=== PATIENT | male | born 1940 | race Caucasian/White ===

== ENCOUNTER 2022-01-08 15:10 | Outpatient (CLI) | payer MEDICARE, SELFPAY ==
[2022-01-08 15:30] LABS: Hematocrit 36.7 % (37.0-46.0); Hemoglobin 12.1 g/dL (12.4-15.3); Mean Corpuscular Hemoglobin 30.4 pg (27.0-31.0); Mean Corpuscular Volume 92.2 fL (78.0-102.0); Mean Platelet Volume 9.4 fl (8.7-11.0); Platelet Count Result 241 K/mm3 (150-420); Red Blood Count 3.98 M/mm3 (4.70-6.10); White Blood Count 8.6 K/mm3 (4.8-10.8)
[2022-01-08 15:57] LABS: Alanine Aminotransferase 23 U/L (16-63); Albumin Level 3.9 g/dL (3.4-5.0); Alkaline Phosphatase 98 U/L (46-116); Anion Gap 9 mmol/L (8-16); Aspartate Amino Transferase 21 U/L (15-37); Bilirubin,Total 0.5 mg/dL (0.00-1.00); Blood Urea Nitrogen 18 mg/dL (7-18); Carbon Dioxide 27 mmol/L (21-32); Chloride 92 mmol/L (98-108); Estimated Glomerular Filt Rate 54; Glucose 112 mg/dL (70-99); Osmolality Calculated 268 mOsm/kg (285-295); Potassium 4.2 mmol/L (3.5-5.1); Sodium 128 mmol/L (136-145); Total Protein 7.5 g/dL (6.4-8.2)
[2022-01-08 16:05] LABS: SARS-CoV-2 RNA PCR Negative (Negative)
== END 2022-01-08 15:11 | disposition home or self-care (01) ==
LOC: CHSLAB 15:14
PROVIDERS: PCP Family Medicine; Visit Provider Family Medicine
DX: R03.0 Elevated blood-pressure reading, without diagnosis of hypertension (principal); R68.89 Other general symptoms and signs; Z20.822 Contact with and (suspected) exposure to COVID-19
CPT/HCPCS: 36415; 80053; 85027; C9803; U0003; U0005

== ENCOUNTER 2022-01-13 13:30 | Outpatient (CLI) | payer MEDICARE, SELFPAY ==
[2022-01-13 14:03] LABS: Anion Gap 5 mmol/L (8-16); Blood Urea Nitrogen 13 mg/dL (7-18); Calcium 9.1 mg/dL (8.5-10.1); Carbon Dioxide 31 mmol/L (21-32); Chloride 99 mmol/L (98-108); Estimated Glomerular Filt Rate > 60; Potassium 3.9 mmol/L (3.5-5.1); Sodium 135 mmol/L (136-145)
[2022-01-13 14:08] LABS: Glucose 105 mg/dL (70-99); Osmolality Calculated 280 mOsm/kg (285-295)
== END 2022-01-13 13:31 | disposition home or self-care (01) ==
LOC: CHSLAB 13:33
PROVIDERS: PCP Family Medicine; Visit Provider Nurse Practitioner Family
DX: E87.1 Hypo-osmolality and hyponatremia (principal)
CPT/HCPCS: 36415; 80048

== ENCOUNTER 2023-04-01 13:29 | Outpatient (CLI) | payer MEDICARE, SELFPAY ==
[2023-04-01 13:44] LABS: Basophils Absolute Auto 0.05 K/mm3 (0.00-0.10); Basophils Percent Auto 0.5 % (0.0-1.0); Eosinophils Absolute Auto 0.53 K/mm3 (0.02-0.50); Eosinophils Percent Auto 4.9 % (1.0-6.0); Hematocrit 36.5 % (37.0-46.0); Hemoglobin 11.9 g/dL (12.4-15.3); Immature Granulocyte Absolute 0.04 K/mm3 (0.00-0.00); Immature Granulocyte Percent A 0.4 % (0.0-0.0); Lymphocytes Absolute Auto 1.65 K/mm3 (1.10-4.50); Lymphocytes Percent Auto 15.4 % (18.0-42.0); Mean Corpuscular HGB Conc 32.6 g/dL (32.0-36.0); Mean Corpuscular Hemoglobin 30.9 pg (27.0-31.0); Mean Corpuscular Volume 94.8 fL (78.0-102.0); Mean Platelet Volume 9.8 fl (8.7-11.0); Monocytes Absolute Auto 0.89 K/mm3 (0.10-0.90); Monocytes Percent Auto 8.3 % (2.0-11.0); Neutrophils Absolute Auto 7.6 K/mm3 (1.7-7.2); Neutrophils Percent Auto 70.5 % (50.0-70.0); Platelet Count Result 287 K/mm3 (150-420); Red Blood Count 3.85 M/mm3 (4.70-6.10); Red Cell Distribution Width 13.3 % (11.6-14.4); White Blood Count 10.7 K/mm3 (4.8-10.8)
[2023-04-01 14:21] LABS: Alanine Aminotransferase 19 U/L (16-63); Albumin Level 3.6 g/dL (3.4-5.0); Alkaline Phosphatase 132 U/L (46-116); Anion Gap 7 mmol/L (8-16); Aspartate Amino Transferase < 10 U/L (15-37); Bilirubin,Total 0.3 mg/dL (0.00-1.00); Blood Urea Nitrogen 16 mg/dL (7-18); Calcium 9.3 mg/dL (8.5-10.1); Carbon Dioxide 30 mmol/L (21-32); Chloride 101 mmol/L (98-108); Cholesterol 125 mg/dL (0-200); Estimated Glomerular Filt Rate > 60; Glucose 80 mg/dL (70-99); HDL Direct 51 mg/dL (40-60); LDL Cholesterol Calculated 55 mg/dL (<130); NT Pro B Type Natriuretic Pept 348 pg/mL (0-450); Osmolality Calculated 286 mOsm/kg (285-295); Potassium 4.5 mmol/L (3.5-5.1); Sodium 138 mmol/L (136-145); Total Protein 6.7 g/dL (6.4-8.2); Triglycerides 96 mg/dL (0-150)
== END 2023-04-01 13:30 | disposition home or self-care (01) ==
LOC: CHSLAB 13:31
PROVIDERS: PCP Family Medicine; Visit Provider Family Medicine
DX: I50.9 Heart failure, unspecified (principal)
CPT/HCPCS: 36415; 80053; 80061; 83880; 85025

== ENCOUNTER 2023-04-19 10:35 | Outpatient (CLI) | payer MEDICARE, SELFPAY ==
--- NOTE | 2023-04-19 10:49 | ECHO_ITS ---
Patient Info Name: Angel Valdes Age: 83 years : 1940 Gender: Male Ht: 66 in Wt: 130 lbs BSA: 1.66 m2 HR: 85 bpm BP: 125 / 62 mmHg Heart Rhythm: Sinus Rhythm Technical Quality: Good Exam Date: 04/19/2023 11:38 AM Exam Location: Echo Lab Patient Status: Outpatient Admit Date: 04/19/2023 Staff Ordering Physician: Abdulaziz Hernandez DO Mobile Home Laborer: Salty Mckeon RDCS Attending Provider: Abdulaziz Hernandez DO Referring Physician: David GAGE; Exam Type: CA echo doppler color flow Study Info Indications - heart failure Complete two-dimensional, color flow and Doppler transthoracic echocardiogram is performed. Summary 1. Complete two-dimensional, color flow and Doppler transthoracic echocardiogram is performed. 2. Left ventricular chamber dimension is normal. 3. Left ventricular systolic function is normal, estimated at 60-65%. 4. The left ventricular diastolic function is grade I diastolic dysfunction. 5. E/e' 4 is not elevated. 6. There is mild aortic valve sclerosis. 7. The mitral valve has mildly calcified annulus. 8. There is trace mitral valve regurgitation. 9. There is mild tricuspid valve regurgitation. 10. No pulmonary hypertension, estimated pulmonary arterial systolic pressure is 16 mmHg. Left Ventricle E/e' 4 is not elevated. Left ventricular chamber dimension is normal. Left ventricular systolic function is normal, estimated at 60-65%. The left ventricular diastolic function is grade I diastolic dysfunction. Right Ventricle Right ventricular systolic function is normal and with normal TAPSE 2.4 cm. Right ventricular chamber dimension is normal. Left Atria Left atrial chamber dimension is normal. Right Atria Right atrial chamber dimension is normal. Aortic Valve The aortic valve is trileaflet. There is mild aortic valve sclerosis. There is no aortic valve stenosis. There is no aortic valve regurgitation. Pulmonic Valve There is no pulmonic regurgitation. Mitral Valve The mitral valve has mildly calcified annulus. There is no mitral valve stenosis. There is trace mitral valve regurgitation. Tricuspid Valve There is mild tricuspid valve regurgitation. No pulmonary hypertension, estimated pulmonary arterial systolic pressure is 16 mmHg. Pericardium/Pleural There is no pericardial effusion. Inferior Vena Cava Normal inferior vena cava with >50% collapse upon inspiration consistent with normal right atrial pressure, 5 mmHg. Aorta The aortic root size at the sinus of Valsalva is normal. Left Ventricular Outflow Tract Name Value Normal LVOT 2D LVOT Diameter 2.0 cm LVOT Doppler LVOT Peak Velocity 83 cm/s LVOT Peak Gradient 3 mmHg LVOT Mean Gradient 2 mmHg LVOT VTI 20 cm LVOT VTI/AV VTI Ratio 0.6 LVOT Stroke Volume 64 ml Pulmonic Valve Name Value Normal RVOT Doppler
== END 2023-04-19 10:36 | disposition home or self-care (01) ==
LOC: CHSIMG 10:36
PROVIDERS: PCP Family Medicine; Visit Provider Family Medicine
DX: I50.9 Heart failure, unspecified (principal); I08.2 Rheumatic disorders of both aortic and tricuspid valves
CPT/HCPCS: 93306

== ENCOUNTER 2024-05-01 16:14 | Emergency (ER) | payer MEDICARE, SELFPAY ==
--- NOTE | ~2024-05-01 | XR_ITS ---
EXAMINATION: XR chest 1V portable Exam Date/Time: 05/01/2024 16:30 [employer] SERVICE TECHNICIAN HISTORY: MID CHEST PRESSURE Comparison: None. RESULT: Lines, tubes, and devices: None. Lungs and pleura: Scattered mild interstitial changes with pleural calcifications. No focal consolid ation, pneumothorax, or large effusion. Cardiomediastinal silhouette: Hilar node calcification. Other: No acute osseous or upper abdominal finding. IMPRESSION: No acute cardiopulmonary process. 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 Reviewed, dictated and finalized at location K. SERVICE TECHNICIAN IMPRESSION: No acute cardiopulmonary process. 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
[2024-05-01 16:15] VITALS: BP 184/88; PULSE 82; RESP 20; TEMP 36.6; O2SAT 100
--- NOTE | 2024-05-01 16:20 | ED.CHESTPAIN ---
HPI - Chest Pain General Chief Complaint: Chest Pain Stated Complaint: chest pain Time Seen by Provider: 05/01/24 16:20 Source: patient and family Mode of arrival: ambulatory Limitations: no limitations History of Present Illness HPI narrative: 84 YEARS OLD WHITE MALE CAME TO THE ED BY PRIVATE CAR FROM HOME WITH HIS SON COMPLAINING OF RETROSTERNAL CHEST PAIN, PRESSURE TYPE, HEARTBURN TYPE, STARTED FEW HOURS PRIOR TO ARRIVAL TO THE EMERGENCY ROOM GET WORSE WHEN HE TALKS, NOTHING MAKE IT BETTER. HISTORY OF PARKINSON, STOP TAKING MEDICATION 2 MONTHS AGO BECAUSE MAY CAME FALLS. CURRENTLY PATIENT DENIES ANY FEVER, CHILLS, SHORTNESS OF BREATH, BACK PAIN, ABDOMINAL PAIN, SORE THROAT OR RESPIRATORY SYMPTOMS. PATIENT IS DNR. PATIENT DOES NOT SMOKE OR DRINK OR USE DRUGS. 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 2017. Occupation/Education: retired Gender identity (if verbalized by the patient): Male Spiritual care concerns: No Exam Narrative: GENERAL APPEARANCE: WELL-DEVELOPED, WELL-NOURISHED SKIN: NORMAL COLOR HEAD: NORMOCEPHALIC, NONTRAUMATIC EYES: CLEAR CONJUNCTIVA ENT: OROPHARYNX NORMAL, EARS NORMAL, NOSE NORMAL NECK: SUPPLE, NONTENDER CHEST AND RESPIRATORY: AIRWAY PATENT, NO RESPIRATORY DISTRESS, NO ACCESSORY MUSCLE USE HEART: REGULAR RATE/RHYTHM ABDOMEN: SOFT, NONTENDER, NO ORGANOMEGALY, QUIET BOWEL SOUNDS VASCULAR: NORMAL PERIPHERAL PULSES, NORMAL CAPILLARY REFILL. MUSCULOSKELETAL: NORMAL RANGE OF MOTION, NONTENDER BACK NEUROLOGIC: ALERT AND ORIENTED ?3, PLANT PRODUCTION WORKER IS NORMAL TESTED, NO GROSS MOTOR DEFICIT Course Consultations Consultation #1: DR TAVAREZ, HOSPITALIST AT [facility] WHO ACCEPTED PATIENT TRANSFER, WAITING FOR A BED Date: 05/01/24 Time: 18:24 Vital Signs Vital signs: Vital Signs Temperature 36.6 C 05/01/24 16:15 Pulse Rate 82 05/01/24 16:15 Respiratory Rate 20 05/01/24 16:15 Blood Pressure 184/88 H 05/01/24 16:15 Pulse Oximetry 100 05/01/24 16:15 Oxygen Delivery Room Air 05/01/24 16:15 Temperature 36.6 C 05/01/24 16:15 Pulse Rate 79 05/01/24 16:29 Respiratory Rate 20 05/01/24 16:15 Blood Pressure 184/88 H 05/01/24 16:15 Pulse Oximetry 100 05/01/24 16:15 Oxygen Delivery Room Air 05/01/24 16:29 MDM - Chest Pain MDM Narrative Medical decision making narrative: PATIENT PRESENTS WITH CHEST PAIN VITAL SIGNS SHOWING BLOOD PRESSURE 184/88, PATIENT DOES NOT TAKE ANY MEDICINE AT HOME PHYSICAL EXAMINATION SHOWING NO SIGNIFICANT ABNORMALITIES EXCEPT PARKINSON SIGNS DIFFERENTIAL DIAGNOSIS CORONARY ARTERY DISEASE, PNEUMONIA, CHEST WALL PAIN, STRESS LIKE SYMPTOMS, GERD BLOOD WORKUP TODAY INCLUDES CBC, CMP, TROPONIN, LIPASE SHOWED CHEST X-RAY SHOWED EKG ON ARRIVAL SHOWED NORMAL SINUS RHYTHM, 80 BEATS PER MINUTE, WITH FIRST-DEGREE HEART BLOCK, RIGHT BUNDLE-BRANCH BLOCK, NONSPECIFIC ST T-WAVE ABNORMALITY, ABNORMAL EKG, PATIENT SYMPTOM RESOLVED AFTER TAKING SUBLINGUAL NITROGLYCERIN AND GI COCKTAIL. CURRENTLY CHEST PAIN IS 0/10. PATIENT WAS ACCEPTED FOR TRANSFERRED TO [facility] PATIENT DECLINED AND SIGNED AMA. I DECLARE THAT I HAVE PERSONALLY EXPLAINED TO THE PATIENT THE RISKS AND CONSEQUENCES INVOLVED IN LEAVING THIS FACILITY AT THIS TIME. THE BENEFITS OF CONTINUED TREATMENT AND/OR HOSPITALIZATION. AND THE ALTERNATIVES. IF ANY. TO CONTINUED TREATMENT AND/OR HOSPITALIZATION. IF APPLICABLE.I HAVE NOT IDENTIFIED ANY PSYCHOSIS, DRUGS, MENTAL ILLNESS, OR MEDICAL ILLNESS THAT ALTERS DECISION-MAKING CAPACITY (REASONING ABILITIES ). Differential Diagnosis Differential diagnosis: Likely other ( ABOVE) Medical Records Data Attestation: I reviewed the patient's medical records. Lab Data Attestation: I reviewed the patient's lab results. 05/01/24 16:25 05/01/24 16:25 Labs: Lab Results 05/01/24 Range/Units 16:25 WBC 10.9 H (4.8-10.8) K/mm3 RBC 4.02 L (4.70-6.10) M/mm3 Hgb 12.4 (12.4-15.3) g/dL Hct 36.9 L (37.0-46.0) % MCV 91.8 (78.0-102.0) fL MCH 30.8 (27.0-31.0) pg MCHC 33.6 (32-36) g/dL RDW 12.9 (11.6-14.4) % Plt Count 295 (150-420) K/mm3 MPV 10.0 (8.7-11.0) fl Immature Gran % (Auto) 0.3 H (0.0-0.0) % Neut % (Auto) 77.3 H (50.0-70.0) % Lymph % (Auto) 13.5 L (18.0-42.0) % [place] % (Auto) 6.6 (2.0-11.0) % Eos % (Auto) 1.9 (1.0-6.0) % Baso % (Auto) 0.4 (0.0-1.0) % Lymph # (Auto) 1.47 (1.10-4.50) K/mm3 [place] # (Auto) 0.72 (0.10-0.90) K/mm3 Eos # (Auto) 0.21 (0.02-0.50) K/mm3 Baso # (Auto) 0.04 (0.00-0.10) K/mm3 Abs Immat Gran (auto) 0.03 H (0.00-0.00) K/mm3 Absolute Neuts (auto) 8.44 H (1.70-7.20) K/mm3 Absolute Nucleated RBC 0.00 (0.00-0.00) K/mm3 Nucleated RBC % 0.0 (0-0.0) % PT 10.7 (9.50-12.1) Seconds INR 1.0 APTT 24.1 (23.9-30.70) Sec Sodium 137 (136-145) mmol/L Potassium 4.0 (3.5-5.1) mmol/L Chloride 101 (98-108) mmol/L Carbon Dioxide 28 (21-32) mmol/L Anion Gap 8 (4-12) mmol/L BUN 21 H (7-18) mg/dL Creatinine 0.93 (0.70-1.30) mg/dL Estim Creat Clear Calc 48 ml/min Estimated GFR > 60 (59 - ) Glucose 140 H (70-99) mg/dL Calculated Osmolality 289 (285-295) mOsm/kg Calcium 9.5 (8.5-10.1) mg/dL Total Bilirubin 0.3 (0.00-1.00) mg/dL AST 21 (15-37) U/L ALT 25 (16-63) U/L Alkaline Phosphatase 185 H (46-116) U/L Troponin I 32.9 (0.00-60.4) ng/L NT-Pro-B Natriuret Pep 1016 H (0-450) pg/mL Total Protein 7.5 (6.4-8.2) g/dL Albumin 4.0 (3.4-5.0) g/dL Lipase 28 (16-77) U/L Discharge Plan Discharge Clinical Impression: Chest pain Patient Disposition: Left Against Medical Advice Condition: Improved Instructions: Chest Pain (ED) Additional Instructions: RETURN IF SYMPTOMS ARE WORSENING , CALL YOUR FAMILY PHYSICIAN FOR APPOINTMENT, TAKE TYLENOL NEEDED FOR ACHES AND PAIN, CONTINUE HOME MEDICATIONS. Prescriptions: New aspirin 81 mg capsule 81 mg PO DAILY Qty: 30 0RF nitroglycerin 0.4 mg tablet, sublingual 0.4 mg sublingual Q5M PRN (Reason: chest pain) Qty: 30 0RF Rx Instructions: do not exceed 3 doses per episode pantoprazole [Protonix] 40 mg tablet,delayed release (DR/EC) 40 mg PO QAM 30 Days Qty: 30 0RF No Action torsemide 20 mg tablet 20 mg PO QAM Qty: 30 0RF sodium chloride 1 gram tablet 1,000 mg PO DAILY Qty: 30 0RF carbidopa-levodopa [Sinemet] 10-100 mg tablet 1 tablet PO BID Qty: 180 0RF Follow-up/Referrals: Abdulaziz Hernandez DO [Primary Care Provider] - Quality HEART score for chest pain patients History: slightly suspicious ECG: non specific repolarization disturbance/LBTB/PM Age: > or = to 65 years Risk factors: 1 or 2 risk factors Troponin: < or = to 1x normal limit Heart score: 4
--- NOTE | 2024-05-01 16:21 | ECG_ITS ---
Test Date: 2024-05-01 16:22:45 Measurements Intervals [place] Rate: 80 P: 71 [place]: 219 QRS: 93 QRSD: 141 T: 75 QT: 376 QTc: 435 Interpretive Statements SINUS RHYTHM WITH FIRST DEGREE AV BLOCK WITH OCCASIONAL VENTRICULAR PREMATURE COMPLEXES RIGHT BUNDLE BRANCH BLOCK [120+ ms QRS DURATION, UPRIGHT V1, 40+ ms S IN I/aVL/V4/V5/V6] No previous ECG available for comparison Electronically Signed On 05-02-2024 14:45:40 SKILLED NURSING FACILITY COUNSELOR by Odilon Osullivan M.D.
[2024-05-01 16:29] VITALS: PULSE 79
[2024-05-01 16:37] LABS: Basophils Absolute Auto 0.04 K/mm3 (0.00-0.10); Basophils Percent Auto 0.4 % (0.0-1.0); Eosinophils Absolute Auto 0.21 K/mm3 (0.02-0.50); Eosinophils Percent Auto 1.9 % (1.0-6.0); Hematocrit 36.9 % (37.0-46.0); Hemoglobin 12.4 g/dL (12.4-15.3); Immature Granulocyte Absolute 0.03 K/mm3 (0.00-0.00); Immature Granulocyte Percent A 0.3 % (0.0-0.0); Lymphocytes Absolute Auto 1.47 K/mm3 (1.10-4.50); Lymphocytes Percent Auto 13.5 % (18.0-42.0); Mean Corpuscular HGB Conc 33.6 g/dL (32-36); Mean Corpuscular Hemoglobin 30.8 pg (27.0-31.0); Mean Corpuscular Volume 91.8 fL (78.0-102.0); Monocytes Absolute Auto 0.72 K/mm3 (0.10-0.90); Monocytes Percent Auto 6.6 % (2.0-11.0); Neutrophils Absolute Auto 8.44 K/mm3 (1.70-7.20); Neutrophils Percent Auto 77.3 % (50.0-70.0); Platelet Count Result 295 K/mm3 (150-420); Red Blood Count 4.02 M/mm3 (4.70-6.10); Red Cell Distribution Width 12.9 % (11.6-14.4); White Blood Count 10.9 K/mm3 (4.8-10.8)
[2024-05-01] MEDS: NITROGLYCERIN SL 0.4 MG TABLET SUBLINGUAL (16:39)
[2024-05-01] MEDS: ASPIRIN 81 MG CHEWABLE TABLET 324 MG PO (16:39)
[2024-05-01 16:45] LABS: Partial Thromboplastin Time 24.1 Sec (23.9-30.70); Prothrombin Time 10.7 Seconds (9.50-12.1)
[2024-05-01 16:53] LABS: Alanine Aminotransferase 25 U/L (16-63); Alkaline Phosphatase 185 U/L (46-116); Anion Gap 8 mmol/L (4-12); Aspartate Amino Transferase 21 U/L (15-37); Bilirubin,Total 0.3 mg/dL (0.00-1.00); Blood Urea Nitrogen 21 mg/dL (7-18); Calcium 9.5 mg/dL (8.5-10.1); Carbon Dioxide 28 mmol/L (21-32); Chloride 101 mmol/L (98-108); Estimated CRCL calculation 48 ml/min; Estimated Glomerular Filt Rate > 60; Glucose 140 mg/dL (70-99); Lipase 28 U/L (16-77); NT Pro B Type Natriuretic Pept 1016 pg/mL (0-450); Osmolality Calculated 289 mOsm/kg (285-295); Sodium 137 mmol/L (136-145); Total Protein 7.5 g/dL (6.4-8.2)
[2024-05-01 16:54] LABS: Troponin I 32.9 ng/L (0.00-60.4)
== END 2024-05-01 18:48 | disposition left against medical advice (07) ==
PROVIDERS: Emergency Provider Emergency Medicine; PCP Family Medicine
DX: R07.9 Chest pain, unspecified (principal); G20.A1 Parkinson's disease without dyskinesia, without mention of fluctuations
CPT/HCPCS: 36415; 71045; 80053; 83690; 83880; 84484; 85025; 85610; 85730; 93005; 99284; A9270

== ENCOUNTER 2024-05-03 11:01 | Emergency (ER) | payer MEDICARE, SELFPAY ==
[2024-05-03] VITALS (29 sets, daily range): BP systolic 124–150; BP diastolic 60–91; PULSE 57–77; RESP 12–20; TEMP 36.5–36.8; O2SAT 92–100
--- NOTE | ~2024-05-03 | XR_ITS ---
Portable chest x-ray Comparison: 05/01/2024 Clinical History: Chest pain Findings: Probable calcified pleural plaques are stable from prior exam. Possible minimal right pleu ral effusion. Cardiomediastinal silhouette is stable. Bones and soft tissues are unremarkable. Impression: Minimal right pleural effusion. Probable bilateral calcified pleural plaques, unchanged. Reviewed, dictated and finalized at location . [employer] Impression: Minimal right pleural effusion. Probable bilateral calcified pleural plaques, unchanged.
--- NOTE | 2024-05-03 11:02 | ED_ITS ---
HPI - Chest Pain General Chief Complaint: Chest Pain Stated Complaint: chest pain Source: patient and family Mode of arrival: ambulatory Limitations: no limitations History of Present Illness HPI narrative: 84-year-old male, nonsmoker with a history of hypertension, diastolic CHF not on treatment, parkinsonism, osteoarthritis, negative stress test in 2019, right bundle-branch block presented to the ED on 05/01/2024 with substernal chest pain. EKG revealed no acute findings other than first-degree AV block and right bundle-branch block which appear to be chronic. He had negative troponins. Chest x-ray did not show any acute findings. He left against medical advise. His chest pain recurred last night. The patient took sublingual nitro at around 4:00 a.m. this morning with relief of chest pain. Subsequently the patient has not had any chest pain/ Shortness of breath This morning he presented to his scheduled outpatient appointment and had an EKG which revealed diffuse T-wave inversion in anterior leads. the patient denies any ongoing chest pain at this time patient had a negative stress test in 2019 which was done as part of the preop medical clearance for inguinal hernia surgery. MD complaint: chest pain Onset (ago): day(s) ( 3 days) Timing of current episode: episodic Prior episodes: Yes Onset: during rest Pain location: substernal Pain radiation: none Severity: moderate Quality: aching Relieving factors: nitroglycerin Treatment prior to arrival: nitroglycerin Risk Factors Coronary artery disease risk factors: hypertension Related Data Allergies Allergy/AdvReac Type Severity Reaction Status Date / Time No Known Allergies Allergy Verified 05/03/24 12:49 Review of Systems 2 Review of Systems: All systems reviewed & are unremarkable except as noted in HPI and below Constitutional: Constitutional: Reports as per HPI and Reports no additional constitutional complaints Eyes: Eyes: Reports as per HPI and Reports no additional eye complaints ENT: Reports system reviewed and no additional complaints, except as documented Cardiovascular: Cardiovascular: Reports as per HPI, Reports no additional cardiovascular complaints and Reports chest pain Respiratory: Respiratory: Reports as per HPI and Reports no additional respiratory complaints Gastrointestinal: Gastrointestinal: Reports as per HPI and Reports no additional gastrointestinal complaints Genitourinary: Genitourinary: Reports no additional male genitourinary complaints and Reports as per HPI Musculoskeletal: Musculoskeletal: Reports no additional musculoskeletal complaints and Reports as per HPI Integumentary/Breasts: Skin/Breast: Reports system reviewed and no additional complaints, except as docu and Reports as per HPI Neurologic: Reports system reviewed and no additional complaints, except as documented Comments: Generalized tremor dysarthria no other focal neuro deficits Psychiatric: Psychiatric: Reports no additional psychiatric complaints and Reports as per HPI Endocrine: Endocrine: Reports no additional endocrine complaints and Reports as per HPI Hematologic/Lymphatic: Hematologic/Lymphatic: Reports no additional hematologic/lymphatic complaints and Reports as per HPI Allergic/Immunologic: Allergic/Immunologic: Reports no additional allergic/immunologic complaints and Reports as per HPI [facility] Past Medical History Medical History Right bundle branch block First degree AV block 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 2017. Occupation/Education: retired Gender identity (if verbalized by the patient): Male Spiritual care concerns: No Exam 2 Narrative: blood pressure stable. Oxygen saturation of 97% on room air with a respiratory rate of 20. Const: General: no acute distress Orientation/consciousness: patient oriented x3 Limitations: no limitations HENMT: Head: normal to inspection Ears: external ears normal F jorge/Nose/Sinus: Normal external nose present Face and sinus: normal facial exam Throat: posterior oropharynx normal Eyes: Conjunctivae: conjunctivae normal Pupils: Equal, round and reactive pupils present EOM: EOMs intact bilaterally Direct Ophthalmoscopy: no photophobia Neck: Neck: normal visual inspection, no lymphadenopathy and no meningeal signs Chest: Chest palpation & inspection: normal inspection of the chest Resp: Effort & Inspection: normal respiratory effort Auscultation: clear to auscultation bilaterally Cardio: Rate: regular rate Rhythm: regular rhythm GI: GI Palp: Yes Soft to palpation Auscultation: normal bowel sounds O ther: No tenderness/ rigidity /rebound. : General: Yes no CVA tenderness Back/Spine/Pelvis: Back: no CVA tenderness Skin: General skin exam: normal color Rashes: no rashes Wounds: no wounds Neuro: General: patient oriented x3, moves all extremities, no meningeal signs, no focal motor deficits and CN's II-XI intact bilaterally Speech: A bnormal speech present ( dysarthria) Other: tremor of bilateral upper extremity with rigidity Extrem: General: normal to inspection and edema Psych: Mental Status: mental status grossly normal Affect: normal affect Attitude: cooperative Course Course Emergency Course: unstable angina diastolic CHF parkinsonism Vital Signs Vital signs: Vital Signs Pulse Rate 76 05/03/24 11:05 Temperature 36.5 C 05/03/24 11:10 Pulse Rate 68 05/03/24 13:16 Respiratory Rate 15 05/03/24 13:16 Blood Pressure 144/65 H 05/03/24 13:16 Pulse Oximetry 99 05/03/24 13:16 Oxygen Delivery Room Air 05/03/24 13:14 MDM - Chest Pain MDM Narrative Medical decision making narrative: Unstable angina/non STEMI diastolic CHF Differential Diagnosis Differential diagnosis: Likely fracture of rib, pneumothorax, unstable angina pectoris and st elevation myocardial infarction Lab Data 05/03/24 11:07 05/03/24 11:07 Labs: Lab Results 05/03/24 Range/Units 11:07 WBC 10.5 (4.8-10.8) K/mm3 RBC 3.82 L (4.70-6.10) M/mm3 Hgb 11.8 L (12.4-15.3) g/dL Hct 35.4 L (37.0-46.0) % MCV 92.7 (78.0-102.0) fL MCH 30.9 (27.0-31.0) pg MCHC 33.3 (32-36) g/dL RDW 13.1 (11.6-14.4) % Plt Count 282 (150-420) K/mm3 MPV 10.2 (8.7-11.0) fl Immature Gran % (Auto) 0.3 H (0.0-0.0) % Neut % (Auto) 75.8 H (50.0-70.0) % Lymph % (Auto) 14.6 L (18.0-42.0) % [place] % (Auto) 6.6 (2.0-11.0) % Eos % (Auto) 2.3 (1.0-6.0) % Baso % (Auto) 0.4 (0.0-1.0) % Lymph # (Auto) 1.53 (1.10-4.50) K/mm3 [place] # (Auto) 0.69 (0.10-0.90) K/mm3 Eos # (Auto) 0.24 (0.02-0.50) K/mm3 Baso # (Auto) 0.04 (0.00-0.10) K/mm3 Abs Immat Gran (auto) 0.03 H (0.00-0.00) K/mm3 Absolute Neuts (auto) 7.96 H (1.70-7.20) K/mm3 Absolute Nucleated RBC 0.00 (0.00-0.00) K/mm3 Nucleated RBC % 0.0 (0-0.0) % PT 10.9 (9.50-12.1) Seconds INR 1.0 APTT 24.3 (23.9-30.70) Sec D-Dimer 0.24 (0.19-0.50) mg/L Sodium 141 (136-145) mmol/L Potassium 3.4 L (3.5-5.1) mmol/L Chloride 102 (98-108) mmol/L Carbon Dioxide 31 (21-32) mmol/L Anion Gap 8 (4-12) mmol/L BUN 15 (7-18) mg/dL Creatinine 0.94 (0.70-1.30) mg/dL Estim Creat Clear Calc 48 ml/min Estimated GFR > 60 (59 - ) Glucose 137 H (70-99) mg/dL Calculated Osmolality 294 (285-295) mOsm/kg Lactic Acid 1.9 (0.4-2.0) mmol/L Calcium 9.1 (8.5-10.1) mg/dL Total Bilirubin 0.5 (0.00-1.00) mg/dL AST 23 (15-37) U/L ALT 18 (16-63) U/L Alkaline Phosphatase 161 H (46-116) U/L Troponin I 1190.3 H* (0.00-60.4) ng/L NT-Pro-B Natriuret Pep 5011 H (0-450) pg/mL Total Protein 7.1 (6.4-8.2) g/dL Albumin 3.7 (3.4-5.0) g/dL Lipase 38 (16-77) U/L ECG Data EKG #1: ECG completion date: 05/03/24 ECG completion time: 11:15 Interpretation: normal sinus rhythm normal axis first-degree AV block and right bundle-branch block. new T inversion in anterior leads. Discharge Plan Discharge Clinical Impression: Non-ST elevated myocardial infarction (non-STEMI) CHF (congestive heart failure) Qualifiers: Heart failure type: unspecified Heart failure chronicity: acute Qualified Code(s): I50.9 - Heart failure, unspecified Patient Disposition: Still a Patient Condition: Stable Additional Instructions: transfer patient to [facility]. Patient has been accepted by software requirements engineer Dr. Osullivan. Patient Language: Mongolian Prescriptions: No Action aspirin 81 mg capsule 81 mg PO DAILY Qty: 30 0RF nitroglycerin 0.4 mg tablet, sublingual 0.4 mg sublingual Q5M PRN (Reason: chest pain) Qty: 30 0RF Rx Instructions: do not exceed 3 doses per episode pantoprazole [Protonix] 40 mg tablet,delayed release (DR/EC) 40 mg PO QAM 30 Days Qty: 30 0RF torsemide 20 mg tablet 20 mg PO QAM Qty: 30 0RF sodium chloride 1 gram tablet 1,000 mg PO DAILY Qty: 30 0RF carbidopa-levodopa [Sinemet] 10-100 mg tablet 1 tablet PO BID Qty: 180 0RF Follow-up/Referrals: Abdulaziz Hernandez DO [Primary Care Provider] - Time of Disposition: 13:30
--- NOTE | 2024-05-03 11:07 | ECG_ITS ---
Test Date: 2024-05-03 11:15:54 Measurements Intervals [place] Rate: 77 P: 83 [place]: 232 QRS: 83 QRSD: 139 T: 104 QT: 420 QTc: 476 Interpretive Statements SINUS RHYTHM WITH FIRST DEGREE AV BLOCK RIGHT BUNDLE BRANCH BLOCK [120+ ms QRS DURATION, UPRIGHT V1, 40+ ms S IN I/aVL/V4/V5/V6] MARKED T-WAVE ABNORMALITY, CONSIDER ANTEROLATERAL ISCHEMIA [-0.5+ mV T-WAVE IN I/aVL/V3-V6] Compared to ECG 05/01/2024 16:22:45 T-wave abnormality now present Possible ischemia now present Ventricular premature complex(es) no longer present Electronically Signed On 05-04-2024 16:44:06 SUSPENDER MAKER by Odilon Osullivan M.D.
[2024-05-03 11:19] LABS: Basophils Absolute Auto 0.04 K/mm3 (0.00-0.10); Basophils Percent Auto 0.4 % (0.0-1.0); Eosinophils Absolute Auto 0.24 K/mm3 (0.02-0.50); Eosinophils Percent Auto 2.3 % (1.0-6.0); Hematocrit 35.4 % (37.0-46.0); Hemoglobin 11.8 g/dL (12.4-15.3); Immature Granulocyte Absolute 0.03 K/mm3 (0.00-0.00); Immature Granulocyte Percent A 0.3 % (0.0-0.0); Lymphocytes Absolute Auto 1.53 K/mm3 (1.10-4.50); Lymphocytes Percent Auto 14.6 % (18.0-42.0); Mean Corpuscular HGB Conc 33.3 g/dL (32-36); Mean Corpuscular Hemoglobin 30.9 pg (27.0-31.0); Mean Corpuscular Volume 92.7 fL (78.0-102.0); Mean Platelet Volume 10.2 fl (8.7-11.0); Monocytes Absolute Auto 0.69 K/mm3 (0.10-0.90); Monocytes Percent Auto 6.6 % (2.0-11.0); Neutrophils Absolute Auto 7.96 K/mm3 (1.70-7.20); Neutrophils Percent Auto 75.8 % (50.0-70.0); Platelet Count Result 282 K/mm3 (150-420); Red Blood Count 3.82 M/mm3 (4.70-6.10); Red Cell Distribution Width 13.1 % (11.6-14.4); White Blood Count 10.5 K/mm3 (4.8-10.8)
[2024-05-03] MEDS: METOPROLOL TARTRATE 25 MG TABLET PO (11:25)
[2024-05-03 11:29] LABS: D Dimer 0.24 mg/L (0.19-0.50); Partial Thromboplastin Time 24.3 Sec (23.9-30.70); Prothrombin Time 10.9 Seconds (9.50-12.1)
[2024-05-03 11:33] LABS: Lactic Acid Reflex 1.9 mmol/L (0.4-2.0)
[2024-05-03] MEDS: HEPARIN SODIUM 5,000 UNITS/ML VIAL 4000 UNITS IV PUSH (11:33)
[2024-05-03] MEDS: HEPARIN SOD/D5W 100 UNITS/ML 25,000 UNITS/250 ML BAG 8 UNITS IV CONT (11:34)
[2024-05-03 11:42] LABS: Alanine Aminotransferase 18 U/L (16-63); Albumin Level 3.7 g/dL (3.4-5.0); Alkaline Phosphatase 161 U/L (46-116); Anion Gap 8 mmol/L (4-12); Aspartate Amino Transferase 23 U/L (15-37); Bilirubin,Total 0.5 mg/dL (0.00-1.00); Blood Urea Nitrogen 15 mg/dL (7-18); Calcium 9.1 mg/dL (8.5-10.1); Carbon Dioxide 31 mmol/L (21-32); Chloride 102 mmol/L (98-108); Estimated CRCL calculation 48 ml/min; Estimated Glomerular Filt Rate > 60; Glucose 137 mg/dL (70-99); Lipase 38 U/L (16-77); NT Pro B Type Natriuretic Pept 5011 pg/mL (0-450); Osmolality Calculated 294 mOsm/kg (285-295); Potassium 3.4 mmol/L (3.5-5.1); Sodium 141 mmol/L (136-145); Total Protein 7.1 g/dL (6.4-8.2)
[2024-05-03 11:44] LABS: Troponin I 1190.3 ng/L (0.00-60.4)
[2024-05-03] MEDS: POTASSIUM CHLORIDE 20 MEQ ER TABLET 40 MEQ PO (13:49)
[2024-05-03 14:13] LABS: Troponin I 1348.5 ng/L (0.00-60.4)
== END 2024-05-03 14:25 | disposition short-term general hospital (02) ==
PROVIDERS: Emergency Provider Internal Medicine Critical Care Medicine; PCP Family Medicine
DX: I21.4 Non-ST elevation (NSTEMI) myocardial infarction (principal); G20.A1 Parkinson's disease without dyskinesia, without mention of fluctuations; I11.0 Hypertensive heart disease with heart failure; I50.9 Heart failure, unspecified
CPT/HCPCS: 36415; 71045; 80053; 83605; 83690; 83880; 84484; 85025; 85380; 85610; 85730; 93005; 96365; 96366; 99285; A9270; J1644

== ENCOUNTER 2025-03-15 15:08 | Outpatient (CLI) | payer MEDICARE, SELFPAY ==
--- NOTE | ~2025-03-15 | XR_ITS ---
EXAMINATION: XR chest 2V, 03/15/2025 15:20 CDT HISTORY: I25.10 - Atherosclerotic heart disease of [place] coronary... COMPARISON: No comparisons available. Technique: 2 views obtained. Findings: There are COPD changes with calcified pleural plaques noted bilaterally. No pneumothorax. Heart is normal size. Mediastinal and hilar contours are within normal limits. Bony thorax no acute abnormality. Impression: No acute cardiopulmonary abnormality. Reviewed, dictated and finalized at location P. Impression: No acute cardiopulmonary abnormality.
[2025-03-15 15:29] LABS: Hematocrit 34.2 % (37.0-46.0); Hemoglobin 10.7 g/dL (12.4-15.3); Immature Granulocyte Percent A 0.5 % (0.0-0.0); Lymphocytes Absolute Auto 1.44 K/mm3 (1.10-4.50); Mean Corpuscular HGB Conc 31.3 g/dL (32-36); Mean Corpuscular Hemoglobin 29.8 pg (27.0-31.0); Mean Corpuscular Volume 95.3 fL (78.0-102.0); Nucleated Red Blood Cells Absolute Auto 0.00 K/mm3 (0.00-0.00); Nucleated Red Blood Cells Perc 0.0 % (0-0.0); Platelet Count Result 280 K/mm3 (150-420); Red Blood Count 3.59 M/mm3 (4.70-6.10); White Blood Count 9.9 K/mm3 (4.8-10.8)
--- OUTSIDE RECORDS SUMMARY | 2025-03-15 16:12 | XMS_ITS | Clinical Summary ---
Author Organization [facility] Address [address] [place] [address] Phone Care Team Providers Care Physician Internist Name Role Phone Abdulaziz Hernandez MD Primary Care Provider [phone] Social History Tobacco Use Types Packs/Day Years Used Date Smoking Tobacco: Never Assessed Sex and Gender Information Value Date Recorded Sex Assigned at Not on file Legal Sex Male 12:18 PM [employer] Gender Identity Not on file Sexual Orientation Not on file Plan of Treatment Not on file Insurance MEDICARE C [employer] Care Teams Physician Internist Relationship Specialty Start Date End Date Abdulaziz Hernandez MD [address] [place] [id number] PCP - General Family Medicine 05/05/24
[2025-03-15 16:30] LABS: Alanine Aminotransferase 18 U/L (6-50); Albumin Level 4.1 g/dL (3.5-5.1); Alkaline Phosphatase 133 U/L (38-126); Anion Gap 7 mmol/L (4-12); Aspartate Amino Transferase 29 U/L (17-59); Bilirubin,Total 0.5 mg/dL (0.2-1.3); Blood Urea Nitrogen 19 mg/dL (9-20); Calcium 9.6 mg/dL (8.4-10.2); Carbon Dioxide 34 mmol/L (22-30); Chloride 98 mmol/L (98-107); Estimated Glomerular Filt Rate > 60; Glucose 139 mg/dL (65-110); Osmolality Calculated 292 mOsm/kg (285-295); Potassium 4.4 mmol/L (3.4-5.0); Sodium 139 mmol/L (137-145); Total Protein 6.9 g/dL (6.3-8.2)
[2025-03-15 16:58] LABS: NT Pro B Type Natriuretic Pept 1660 pg/mL (19.9-100)
[2025-03-15 17:00] LABS: Thyroid Stimulating Hormone Reflex 0.909 uIU/mL (0.465-4.68)
[2025-03-15 17:44] LABS: Vitamin B12 341.0 pg/mL (239-931)
== END 2025-03-15 15:09 | disposition home or self-care (01) ==
LOC: CHSLAB 15:09
PROVIDERS: PCP Family Medicine; Visit Provider Family Medicine
DX: E53.8 Deficiency of other specified B group vitamins (principal); I25.10 Atherosclerotic heart disease of native coronary artery without angina pectoris; E03.9 Hypothyroidism, unspecified; I50.9 Heart failure, unspecified
CPT/HCPCS: 36415; 71046; 80053; 82607; 82746; 83880; 84443; 85025